=== PATIENT | female | born 1955 | race Caucasian/White ===

== ENCOUNTER → 2017-05-21 | Outpatient (CLI) | payer MEDICAID ==
[~2017-05-21] MED LIST: ALBU8.5H3 INH; ALBU8.5H5 INH; ALBUTEROL INH; ALPR-475 PO; ASPI81TA18 PO; CEFD300C37 PO; CYCL-259 PO; DOXY100C2 PO; FLUT1DIS; FLUT1DIS5 IH; GADOBUTROL 10 MMOL/10 ML PFS ONE; GLIPIZIDE PO; HYDR-3240 PO; INSU100I13 SQ-INSULIN; LISI-170 PO; LISINOPRIL PO; METAMUCIL PO; METH4TAB2 PO; MOME13HF2 INH; OXYC1TAB7 PO; PEPCID PO; PIOG1TAB7; PIOG1TAB7 PO; SPIRIVA INH; TUMS PO
== END | disposition home or self-care (01) ==
LOC: RAD 12:43 → EDSTATUS 13:00
PROVIDERS: ATTEND Neurological Surgery
DX: M48.06 Spinal stenosis, lumbar region (principal); M51.36 Other intervertebral disc degeneration, lumbar region; M51.26 Other intervertebral disc displacement, lumbar region; M51.27 Other intervertebral disc displacement, lumbosacral region; M47.897 Other spondylosis, lumbosacral region; M47.896 Other spondylosis, lumbar region; M41.86 Other forms of scoliosis, lumbar region; G89.29 Other chronic pain
CPT/HCPCS: 72110; 72158; A9585

== ENCOUNTER 2017-10-18 12:30 | Emergency (ER) | payer MEDICAID ==
[~2017-10-18] VITALS: Ht 157.5 cm; Wt 98.8 kg
[~2017-10-18 12:30] MED LIST changes: -ALBU8.5H3 INH; +ALBU8.5H8 INH; +ASPI-696 PO; -ASPI81TA18 PO; -GADOBUTROL 10 MMOL/10 ML PFS ONE; +PIOG1TAB16; +PIOG1TAB16 PO; -PIOG1TAB7; -PIOG1TAB7 PO
[2017-10-18] MEDS ORDERED: methylPREDNISolone SOD SUCC 125 MG/2 ML IVP ONE (15:00)
[2017-10-18] MEDS ORDERED: SODIUM CHLORIDE FLUSH 10ML SYR IVF ONE (15:00)
[2017-10-18 15:14] LABS: BASOPHILS # (AUTO) 0.06 x10^3/uL (0-0.1); BASOPHILS % (AUTO) 1 % (0-1); EOSINOPHILS # (AUTO) 0.05 x10^3/uL (0-0.4); EOSINOPHILS % (AUTO) 1 % (1-7); LYMPHOCYTES # (AUTO) 1.45 x10^3/uL (1-3.4); LYMPHOCYTES % (AUTO) 22 % (22-44); MD NO; MEAN CORPUSCULAR HEMOGLOBIN 29.7 pg (27.0-34.8); MEAN CORPUSCULAR HGB CONC 33.4 g/dL (32.4-35.8); MEAN CORPUSCULAR VOLUME 89.2 fL (80-100); MEAN PLATELET VOLUME 8.5 fL (7.4-10.4); MONOCYTES # (AUTO) 0.34 x10^3/uL (0.2-0.8); MONOCYTES % (AUTO) 5 % (2-9); NEUTROPHILS # (AUTO) 4.66 x10^3/uL (1.8-6.8); NEUTROPHILS % (AUTO) 71 % (42-75); PLATELET COUNT 188 x10^3/uL (130-400); RED BLOOD COUNT 4.39 x10^6/uL (3.82-5.3); RED CELL DISTRIBUTION WIDTH 13.9 % (9.6-15.2)
[2017-10-18 15:22] LABS: RAPID INFLUENZA A Negative (Negative); RAPID INFLUENZA B Negative (Negative)
[2017-10-18 15:24] LABS: ALBUMIN 3.7 g/dL (3.4-5.0); ANION GAP 11 mmol/L (5-15); CALCIUM 9.1 mg/dL (8.5-10.1); CHLORIDE 105 mmol/L (98-107); CREATININE 1.26 mg/dL (0.55-1.02)
[2017-10-18 15:28] LABS: TROPONIN I < 0.015 ng/mL (0.000-0.045)
[2017-10-18] MEDS ORDERED: methylPREDNISolone SOD SUCC 125 MG/2 ML ONE (15:38)
[2017-10-18] MEDS ORDERED: ALBUTEROL/IPRATROPIUM 2.5MG/0.5MG, 3 ML ONE (15:38)
[2017-10-18] MEDS: ALBUTEROL/IPRATROPIUM 2.5MG/0.5MG, 3 ML NPPB SCH (15:46)
[2017-10-18] MEDS ORDERED: ACETAMINOPHEN 325 MG TABLET ONE (17:04)
[2017-10-18] MEDS ORDERED: CEFTRIAXONE PMX 1GM/50ML 50 ML IVPB ONE (17:30)
[2017-10-18] MEDS ORDERED: ACETAMINOPHEN 325 MG TABLET PO ONE (17:30)
[2017-10-18] MEDS ORDERED: CEFTRIAXONE PMX 1GM/50ML 50 ML ONE (17:31)
[2017-10-18 18:31] VITALS: BP 134/59
== END 2017-10-18 18:54 | disposition home or self-care (01) ==
LOC: ED 15:40
DX: J45.41 Moderate persistent asthma with (acute) exacerbation (principal); J15.9 Unspecified bacterial pneumonia; I10 Essential (primary) hypertension; E03.9 Hypothyroidism, unspecified; E11.9 Type 2 diabetes mellitus without complications; Z87.891 Personal history of nicotine dependence
CPT/HCPCS: 36415; 71046; 80048; 82040; 83880; 84484; 85025; 87400; 93005; 94640; 96365; 96375; 99285; J0696; J2930; J7620

== ENCOUNTER → 2019-11-29 | Outpatient (CLI) | payer MEDICARE, MEDICAID ==
[~2019-11-29] MED LIST changes: -ALPR-475 PO; +ALPR0.5T7 PO
== END | disposition home or self-care (01) ==
LOC: RAD 15:58
PROVIDERS: ATTEND Emergency Medicine
DX: R22.41 Localized swelling, mass and lump, right lower limb (principal); M79.661 Pain in right lower leg

== ENCOUNTER 2020-03-19 18:07 | Emergency (ER) | payer MEDICARE, MEDICAID ==
[~2020-03-19] VITALS: Ht 172.7 cm; Wt 97.1 kg
--- NOTE | 2020-03-19 18:51 | NUR ---
PT C/O WORSENING ASTHMA OVER LAST FEW DAYS. HX ASTHMA "FOR YEARS". PT INCREASED WORK OF BREATHING, 98% RA. PT STATES SHE HAS BEEN USING HER "MACHINE" FOR ASTHMA MEDS "MORE OFTEN AND LUNGS FEEL DRY". DENIES CP. CONNECTED TO MONITORING. CALL LIGHT IN REACH.
[2020-03-19] MEDS ORDERED: ALBUTEROL/IPRATROPIUM 2.5MG/0.5MG, 3 ML ONE (19:21)
[2020-03-19 19:30] LABS: BASOPHILS # (AUTO) 0.03 x10^3/uL (0-0.1); BASOPHILS % (AUTO) 1 % (0-1); EOSINOPHILS # (AUTO) 0.13 x10^3/uL (0-0.4); EOSINOPHILS % (AUTO) 2 % (1-7); LYMPHOCYTES # (AUTO) 2.13 x10^3/uL (1-3.4); LYMPHOCYTES % (AUTO) 38 % (22-44); MD NO; MEAN CORPUSCULAR HEMOGLOBIN 29.4 pg (27.0-34.8); MEAN CORPUSCULAR HGB CONC 33.2 g/dL (32.4-35.8); MEAN CORPUSCULAR VOLUME 88.5 fL (80-100); MONOCYTES # (AUTO) 0.34 x10^3/uL (0.2-0.8); MONOCYTES % (AUTO) 6 % (2-9); NEUTROPHILS # (AUTO) 3.02 x10^3/uL (1.8-6.8); NEUTROPHILS % (AUTO) 53 % (42-75); PLATELET COUNT 226 x10^3/uL (130-400); RED BLOOD COUNT 3.92 x10^6/uL (3.82-5.3)
[2020-03-19] MEDS ORDERED: ALBUTEROL/IPRATROPIUM 2.5MG/0.5MG, 3 ML NPPB PRN (19:30)
[2020-03-19] MEDS ORDERED: DEXAMETHASONE 4 MG TABLET PO ONE (19:30)
[2020-03-19] MEDS ORDERED: DEXAMETHASONE 4 MG TABLET ONE (19:40)
--- NOTE | 2020-03-19 19:42 | NUR ---
MEDS ADMIN PER DEC.
[2020-03-19 19:43] VITALS: BP 131/61
[2020-03-19 19:43] LABS: ALBUMIN 3.4 g/dL (3.4-5.0); ANION GAP 9 mmol/L (5-15); CALCIUM 9.1 mg/dL (8.5-10.1); CHLORIDE 112 mmol/L (98-107)
[2020-03-19 19:49] LABS: CREATININE 1.39 mg/dL (0.55-1.02); TROPONIN I < 0.015 ng/mL (0.000-0.045)
--- NOTE | 2020-03-19 20:32 | NUR ---
MD AT BEDSIDE TO UPDATE PT ON POC.
== END 2020-03-19 21:31 | disposition home or self-care (01) ==
LOC: ED 21:29
DX: J45.41 Moderate persistent asthma with (acute) exacerbation (principal); R06.02 Shortness of breath; Z20.828 Contact with and (suspected) exposure to other viral communicable diseases; R94.31 Abnormal electrocardiogram [ECG] [EKG]
CPT/HCPCS: 36415; 71045; 80048; 82040; 83880; 84484; 85025; 93005; 94640; 99285; U0001

== ENCOUNTER 2020-04-06 16:36 | Emergency (ER) | payer MEDICARE, MEDICAID ==
[~2020-04-06] VITALS: Ht 162.6 cm; Wt 95.0 kg
--- NOTE | 2020-04-06 17:31 | NUR ---
"SINCE SUNDAY I DON'T HAVE ANY FLAVOR IN ANY TASTE BUDS. TWO WEEKS AGO I WAS HERE FOR AN ASTHMA EXACERBATION. I'M TAKING ABX PILLS DOXYCYCLINE AND THE SIDE EFFECT IS THAT AND THE PROBLEM BARELY STARTED". GOT TESTED FOR COVID-19 2-3 WEEKS AGO HERE TESTED NEGATIVE. DENIES CP/SOB. SENT HERE BY PCP DR. MONSON FOR ANOTHER COVID TEST.PT IN BED WITH CONT PRINCIPAL SYSTEM SOFTWARE ENGINEER, SPO2, BP Q 30 MIN, SIDE RAILS UP X2, CALL LIGHT IN REACH.PT TO ROOM ASSUME CARE AT THIS TIME.
[2020-04-06] MEDS ORDERED: ALBUTEROL/IPRATROPIUM 2.5MG/0.5MG, 3 ML ONE (17:47)
[2020-04-06] MEDS ORDERED: ALBUTEROL/IPRATROPIUM 2.5MG/0.5MG, 3 ML NPPB ONE (18:00)
--- NOTE | 2020-04-06 18:52 | NUR ---
REPORT RECIEVED FROM GRIFFIN JAMES.
[2020-04-06 19:25] VITALS: BP 150/75
--- NOTE | 2020-04-06 20:01 | NUR ---
PATIENT ROAD TESTED, TOLERATED WELL. UPDATED ON PLAN OF CARE. PATIENT STARTED WITH OXYGENATION STATUS OF 100% THEN AFTER 25 FEET PATIENT PULSE OXY AT 98%. PATIENT STATED THAT SHE FELT SAFE AT HOME.
--- NOTE | 2020-04-06 20:18 | NUR ---
PATIENT CLEARED FOR DISCHARGE. VITAL SIGNS STABLE. PATIENT ABLE TO AMBULATE WITH CANE, THIS IS PATIENT'S BASELINE. NO NOTED ACUTE DISTRESS. VERBALIZED UNDERSTANDING. INDUSTRIAL HYGIENE ENGINEER USED AT BEDSIDE TO ENSURE PROPER COMMUNICATION.
== END 2020-04-06 20:25 | disposition home or self-care (01) ==
LOC: ED 20:19
DX: U07.1 COVID-19 (principal); R43.8 Other disturbances of smell and taste; J45.41 Moderate persistent asthma with (acute) exacerbation; E11.9 Type 2 diabetes mellitus without complications; M19.90 Unspecified osteoarthritis, unspecified site; Z90.89 Acquired absence of other organs; Z87.891 Personal history of nicotine dependence; Z90.49 Acquired absence of other specified parts of digestive tract
CPT/HCPCS: 71045; 94640; 99284; U0001

== ENCOUNTER 2021-05-08 16:56 | Emergency (ER) | payer MEDICARE, MEDICAID ==
[~2021-05-08] VITALS: Ht 162.6 cm; Wt 102.3 kg
[~2021-05-08 16:56] MED LIST changes: -CYCL-259 PO; +CYCL10TA2 PO; +HYDR-2214 PO; -HYDR-3240 PO
[2021-05-08] MEDS ORDERED: PIOG1TAB PO (17:37)
[2021-05-08] MEDS ORDERED: METO25TA35 PO (17:37)
[2021-05-08] MEDS ORDERED: HYDR-3248 PO (17:37)
--- NOTE | 2021-05-08 17:58 | NUR ---
Heart palpitations and dizzyness x 4 day. Pt in bed in gown with cont cardiac monitor technician, spo2, bp q 30 min, side rails up x2, call light in reach. NAD. Family at bedside.
[2021-05-08 18:39] LABS: BASOPHILS % (AUTO) 1 % (0-1); EOSINOPHILS % (AUTO) 1 % (1-7); LYMPHOCYTES % (AUTO) 36 % (22-44); MEAN CORPUSCULAR HGB CONC 33.8 g/dL (32.4-35.8); MEAN PLATELET VOLUME 9.3 fL (7.4-10.4); MONOCYTES % (AUTO) 6 % (2-9); NEUTROPHILS % (AUTO) 56 % (42-75); PLATELET COUNT 197 x10^3/uL (130-400); RED BLOOD COUNT 3.87 x10^6/uL (3.82-5.3); RED CELL DISTRIBUTION WIDTH 14.7 % (9.6-15.2)
[2021-05-08 18:53] LABS: ALANINE AMINOTRANSFERASE 18 U/L (12-78); ALBUMIN 3.1 g/dL (3.4-5.0); ANION GAP 6 mmol/L (5-15); CALCIUM 8.5 mg/dL (8.5-10.1); CHLORIDE 109 mmol/L (98-107); CREATININE 1.33 mg/dL (0.55-1.02)
[2021-05-08 19:03] LABS: ALKALINE PHOSPHATASE 68 U/L (45-117); BILIRUBIN,TOTAL 0.4 mg/dL (0.2-1.0); TOTAL PROTEIN 6.2 g/dL (6.4-8.2); TROPONIN I < 0.015 ng/mL (0.000-0.045)
--- NOTE | 2021-05-08 19:20 | NUR ---
FIRST CONTACT WITH PATIENT. PATIENT LYING IN STRETCHER. NAD. PATIENT REQUESTING TO USE RESTROOM. ASSISTED PATIENT TO THE BATHROOM AND REMAINED WITH PATIENT DUE TO DIZZINESS. PATIENT MISSED CUP WHILE TRYING TO PROVIDE URINE SAMPLE. VSS. WILL CONTINUE TO MONITOR.
--- NOTE | 2021-05-08 21:15 | NUR ---
PATIENT ASSISTED TO THE BATHROOM BY THIS RN. URINE SAMPLE OBTAINED.
[2021-05-08 21:16] VITALS: BP 160/94
[2021-05-08 21:29] LABS: MICROSCOPIC INDICATED
--- NOTE | 2021-05-08 21:58 | NUR ---
Patient given discharge instructions and they have confirmed that they understand the instructions. Patient ambulatory with steady gait. NAD, all questions answered appropriately, denies additional needs at this time. No personal belongings left in room after discharge.
== END 2021-05-08 22:15 | disposition home or self-care (01) ==
LOC: ED 22:08
DX: R00.2 Palpitations (principal); N30.00 Acute cystitis without hematuria; I10 Essential (primary) hypertension; J45.909 Unspecified asthma, uncomplicated; M19.90 Unspecified osteoarthritis, unspecified site; E11.40 Type 2 diabetes mellitus with diabetic neuropathy, unspecified; E66.9 Obesity, unspecified; Z68.38 Body mass index [BMI] 38.0-38.9, adult; Z90.49 Acquired absence of other specified parts of digestive tract; Z87.891 Personal history of nicotine dependence
CPT/HCPCS: 36415; 71045; 80053; 81001; 83880; 84443; 84484; 85025; 87086; 93005; 99285

== ENCOUNTER 2021-06-23 06:39 | Observation (INO) | payer MEDICARE, MEDICAID ==
[~2021-06-23] VITALS: Ht 160 cm; Wt 97.7 kg
[~2021-06-23 06:39] MED LIST changes: -DOXY100C2 PO; +DOXY100C5 PO; +HYDR-3248 PO; +METO25TA35 PO; +PIOG1TAB PO
[2021-06-23] MEDS ORDERED: GLIP10TA13 PO (07:29)
[2021-06-23] MEDS ORDERED: FAMO-79 PO (07:29)
[2021-06-23] MEDS ORDERED: ALBU8.5H8 PO (07:29)
[2021-06-23] MEDS ORDERED: MONT10TA17 PO (07:29)
[2021-06-23] MEDS ORDERED: PANT40TA6 PO (07:29)
[2021-06-23] MEDS ORDERED: SENN17.23 PO (07:29)
[2021-06-23] MEDS ORDERED: FLUT9.9S NAS (07:29)
[2021-06-23] MEDS ORDERED: HYDR-3248 PO (07:29)
[2021-06-23] MEDS ORDERED: POLY17PO5 PO (07:29)
[2021-06-23] MEDS ORDERED: FLUT1BLS15 PO (07:29)
[2021-06-23] MEDS ORDERED: KRIL1CAP22 PO (07:29)
[2021-06-23] MEDS ORDERED: LISI-170 PO (07:29)
[2021-06-23] MEDS ORDERED: MULT-833 PO (07:29)
[2021-06-23 07:44] VITALS: BP 144/78
[2021-06-23] MEDS ORDERED: MIDAZOLAM 1 MG/ML, 5ML ONE (08:00)
[2021-06-23] MEDS ORDERED: CEFAZOLIN PMX 1GM/50ML 50 ML ONE (08:00)
[2021-06-23] MEDS ORDERED: FENTANYL PF 100 MCG/2ML ONE (08:00)
[2021-06-23] MEDS ORDERED: CEFAZOLIN 1,000 MG ONE (08:00)
[2021-06-23] MEDS ORDERED: LIDOCAINE 2%, 20ML ONE ×2 (08:00→08:30)
[2021-06-23 08:04] LABS: ANION GAP 7 mmol/L (5-15); CHLORIDE 107 mmol/L (98-107); CREATININE 1.18 mg/dL (0.55-1.02)
[2021-06-23 08:05] LABS: BASOPHILS % (AUTO) 1 % (0-1); EOSINOPHILS % (AUTO) 1 % (1-7); LYMPHOCYTES % (AUTO) 32 % (22-44); MEAN CORPUSCULAR HEMOGLOBIN 30.1 pg (27.0-34.8); MEAN CORPUSCULAR HGB CONC 34.1 g/dL (32.4-35.8); MEAN PLATELET VOLUME 8.5 fL (7.4-10.4); MONOCYTES % (AUTO) 7 % (2-9); NEUTROPHILS % (AUTO) 60 % (42-75); PLATELET COUNT 239 x10^3/uL (130-400); RED BLOOD COUNT 3.75 x10^6/uL (3.82-5.3); RED CELL DISTRIBUTION WIDTH 13.5 % (9.6-15.2)
[2021-06-23 08:11] LABS: INTERNATIONAL NORMALIZED RATIO 0.98 (0.93-1.1); PROTHROMBIN TIME 10.5 Seconds (9.6-11.5)
[2021-06-23] MEDS ORDERED: Hold all anticoagulants for 24 hours MC PRN (09:30)
[2021-06-23] MEDS: SODIUM CHLORIDE 0.9% 1,000 ML IV SCH ×3 (09:44→23:30)
[2021-06-23] MEDS: ACETAMINOPHEN 325 MG TABLET PO PRN ×3 (11:15→20:49)
[2021-06-23 14:47] VITALS: BP 134/79
[2021-06-23] MEDS: CEFAZOLIN PMX 1GM/50ML 50 ML IVPB SCH (15:40)
[2021-06-23 19:13] VITALS: BP 138/77
[2021-06-23] MEDS: SODIUM CHLORIDE FLUSH 10ML SYR IVF SCH (20:39)
[2021-06-23] MEDS ORDERED: FAMOTIDINE 20 MG TABLET PO SCH ×2 (21:00)
[2021-06-24 00:19] VITALS: BP 115/68
[2021-06-24] MEDS: CEFAZOLIN PMX 1GM/50ML 50 ML IVPB SCH ×2 (00:22→07:57)
[2021-06-24] MEDS: ACETAMINOPHEN 325 MG TABLET PO PRN (05:12)
[2021-06-24] MEDS: SODIUM CHLORIDE 0.9% 1,000 ML IV SCH (07:30)
[2021-06-24 08:00] VITALS: BP 115/65
[2021-06-24] MEDS ORDERED: metFORMIN XR 500 MG TAB.ER.24H PO SCH (08:00)
[2021-06-24] MEDS ORDERED: LISINOPRIL 20 MG TABLET PO SCH (09:00)
[2021-06-24] MEDS ORDERED: PIOGLITAZONE 15 MG TABLET PO SCH (09:00)
[2021-06-24] MEDS ORDERED: POLYETHYLENE GLYCOL 17 GM PACKET PO SCH (09:00)
[2021-06-24] MEDS ORDERED: PANTOPRAZOLE 40MG TABLET PO SCH (09:00)
[2021-06-24] MEDS ORDERED: MONTELUKAST 10 MG TABLET PO SCH (09:00)
[2021-06-24] MEDS: SODIUM CHLORIDE FLUSH 10ML SYR IVF SCH (09:02)
== END 2021-06-24 10:34 | disposition home or self-care (01) ==
LOC: CACL 06:39 → 5SO 08:05 → CACL 13:41
PROVIDERS: ADMIT Internal Medicine Cardiovascular Disease; ATTEND Internal Medicine Cardiovascular Disease
DX: I44.1 Atrioventricular block, second degree (principal); I10 Essential (primary) hypertension; E11.65 Type 2 diabetes mellitus with hyperglycemia; J45.909 Unspecified asthma, uncomplicated; Z87.891 Personal history of nicotine dependence; Z79.899 Other long term (current) drug therapy
CPT/HCPCS: 33208; 36415; 71045; 80048; 82962; 85025; 85610; 93005; 96365; 96366; 99156; 99157; C1779; C1785; C1892; G0378; J0690; J2250; J3010; J3490